=== PATIENT | male | born 1970 | race Caucasian/White ===

== ENCOUNTER → 2018-01-02 10:56 | Outpatient (CLI) | payer BC, SELFPAY ==
[2018-01-02 11:13] LABS: Adenovirus,PCR Not Detected (NotDetected); Bordetella Pertussis Not Detected (NotDetected); Chlamydophila Pneumoniae, PCR Not Detected (NotDetected); Coronavirus 229E Not Detected (NotDetected); Coronavirus NL63 Not Detected (NotDetected); Coronavirus OC43 Not Detected (NotDetected); Coronovirus HKU1,PCR Not Detected (NotDetected); Human Metapneumovirus Not Detected (NotDetected); Influenza A, PCR Not Detected (NotDetected); Influenza AH1, 2009 Not Detected (NotDetected); Influenza AH1, PCR Not Detected (NotDetected); Influenza AH3,PCR Not Detected (NotDetected); Influenza B, PCR Not Detected (NotDetected); Mycoplasma Pneumoniae, PCR Not Detected (NotDetected); Parainfluenza 1, PCR Not Detected (NotDetected); Parainfluenza 2, PCR Not Detected (NotDetected); Parainfluenza 3, PCR Not Detected (NotDetected); Parainfluenza 4, PCR Not Detected (NotDetected); Respiratory Syncytial Virus Not Detected (NotDetected); Rhinovirus/Enterovirus Not Detected (NotDetected)
[2018-01-02 13:29] LABS: Basophils # 0.1 K/mm3 (0-0.2); Basophils % 0.5 % (0.1-2.0); Eosinophils # 0.5 K/mm3 (0.0-0.4); Eosinophils % 4.1 % (0.1-12.0); Hemoglobin 13.7 g/dL (14.1-18.0); Lymphocytes # 2.1 K/mm3 (0.7-4.5); Lymphocytes % 17.5 % (10-50); Mean Corpuscular HGB Conc 32.5 g/dL (31.8-35.4); Mean Corpuscular Hemoglobin 31.5 pg (27.0-31.2); Mean Corpuscular Volume 96.8 fl (80-94); Mean Platelet Volume 6.8 fl (7.4-10.4); Monocytes # 0.5 K/mm3 (0.1-1.0); Monocytes % 4.2 % (1.7-9.3); Neutrophils % 73.7 % (37.0-80.0); Platelet Count 273 K/mm3 (142-424); Red Blood Count 4.34 M/mm3 (4.60-6.20); Red Cell Distribution Width 13.3 % (11.5-17.5); White Blood Count 12.2 K/mm3 (4.8-10.8)
[2018-01-02 14:23] LABS: Monoscreen (Rapid) Negative (Negative)
[2018-01-02 14:35] LABS: Alanine Aminotransferase 59 U/L (12-78); Albumin/Globulin Ratio 1.3 (1.1-1.8); Alkaline Phosphatase 84 U/L (46-116); Anion Gap 14.3 mEq/L (5-15); Aspartate Amino Transferase 31 U/L (15-37); Bilirubin,Total 0.3 mg/dL (0.2-1.0); Blood Urea Nitrogen 14 mg/dL (7-18); Calcium 9.1 mg/dL (8.5-10.1); Carbon Dioxide 29 mmol/L (21.0-32.0); Chloride 103 mmol/L (98-107); Creatinine,Serum 0.83 mg/dL (0.70-1.30); Estimated Glomerular Filt Rate 99 ml/min (>60); GFR (African American) 120 ML/MIN (>60); Glucose 95 mg/dL (74-106); Potassium 4.3 mmoL/L (3.5-5.1); Sodium 142 mmol/L (136-145)
== END ==
PROVIDERS: PCP Nurse Practitioner Family; Visit Provider Nurse Practitioner Family
DX: R05 Cough (principal); R52 Pain, unspecified
CPT/HCPCS: 36415; 80053; 85025; 86318; 87486; 87581; 87633; 87798

== ENCOUNTER → 2018-12-16 12:43 | Outpatient (CLI) | payer BC, SELFPAY ==
--- NOTE | 2018-12-16 12:45 | CT_ITS ---
PROCEDURE: CT CHEST WO CON CLINICAL INDICATION: COPD Posttraumatic pain, lower left rib/chest pain, smoker COMPARISON: XR CHEST 2V from 12/07/2018 TECHNIQUE: Axial images obtained with sagittal and coronal reformats. All CT scans at the facility use one or more dose reduction, viz: automated exposure control, ma/kV adjustment per patient size (including targeted exams where dose is matched to indication, i.e. head), or iterative reconstruction technique. FINDINGS: There are scattered small mediastinal lymph nodes. No dominant mediastinal or hilar adenopathy or mass is evident. There are coronary artery calcifications. No evidence of aortic aneurysm. Normal heart size without evidence pericardial effusion. Changes of COPD. There are diffuse faint ill-defined alveolar opacities in the upper lobes slightly more prominent on the right with slightly greater areas of faint consolidation noted in the right lower lobe laterally and in the right middle lobe laterally. There are few scattered small nodular opacities including a 4 mm nodule right upper lobe centrally image 32 series 3, 4 mm nodule right upper lobe centrally image 31 series 3, 6 mm nodule right upper lobe inferiorly along the major fissure image 45 series 3, 4 mm nodule right lower lobe posteriorly image 61 series 3. Ill-defined nodular opacities are present in the right lower lobe posterior laterally and could be due to nodular areas of infiltrate. Other scattered ground-glass opacities are noted as well including 1 in the right lower lobe posteriorly at 9 mm image 41 series 3. 3 mm noncalcified nodule lingula image 57 series 3. 3 mm noncalcified nodule left lower lobe posteriorly image 50 series 3. No effusions. Upper abdominal images show some calcification along the anterior aspect of the right kidney and the posterior aspect of the right hepatic lobe as well as a hyperdense nodule of the right kidney anteriorly at 5 mm and possible cyst in the upper pole of the right kidney. Ultrasound may provide further evaluation if clinically desired There are degenerative changes of the thoracic spine with mild wedging anteriorly involving T4 T12 and L1 which are age indeterminate. 3D reformatted images are performed of the ribs. There is a nondisplaced fracture involving the posterior lateral aspect of the left 10th rib. There are 13 sets of ribs. There is an old fracture involving the left 6th rib posteriorly. IMPRESSION: 1. Nondisplaced left 10th rib fracture 2. Scattered ground-glass opacities some of which have a somewhat nodular configuration. Inflammation or infection/pneumonia is considered. Cannot exclude the possibility metastatic disease therefore, follow-up is suggested. There are numerous noncalcified nodular opacities which are of the 6 mm or less. Suggest 3 month follow-up. 3. Coronary artery calcifications 4. COPD 5. 5 mm hyperdense nodule right kidney with possible cysts superiorly. Renal ultrasound may be of further value Dictated by: Cholo Camacho MD 12/18/2018 06:46 Electronically signed by Cholo Camacho MD in [facility] 12/18/2018 06:46
== END ==
PROVIDERS: PCP Nurse Practitioner Family; Visit Provider Nurse Practitioner Family
DX: J44.9 Chronic obstructive pulmonary disease, unspecified (principal)
CPT/HCPCS: 71250

== ENCOUNTER → 2019-03-27 14:52 | Outpatient (CLI) | payer BC, SELFPAY ==
--- NOTE | 2019-03-27 15:08 | CT_ITS ---
PROCEDURE: CT CHEST WO CON CLINICAL INDICATION: PULMONARY NODULE Follow-up pulmonary nodule, current smoker COMPARISON: CT CHEST WO CON from 12/16/2018 TECHNIQUE: Axial images obtained with sagittal and coronal reformats. All CT scans at the facility use one or more dose reduction, viz: automated exposure control, ma/kV adjustment per patient size (including targeted exams where dose is matched to indication, i.e. head), or iterative reconstruction technique. FINDINGS: No mediastinal or hilar mass or adenopathy. There are scattered small mediastinal lymph nodes which are not significantly changed. There are coronary artery calcifications. Normal heart size. Changes of COPD. Diffuse reticular pattern is present as before. There are scattered small pulmonary nodules as described on the previous exam which are not significantly changed. No new nodular opacities are evident. Small area of atelectasis is noted in the left upper lobe medially which was not present previously. There is mild diffuse bronchial thickening. The diffuse ill-defined alveolar opacities have improved. The consolidation in the right lower lobe and right middle lobe has improved. No effusions. The hyperdense right renal nodule is unchanged. There is some minimal calcification along the right renal cortex anteriorly. There is stable mild wedging T2 and T3 as well as T12-T11 and T10 IMPRESSION: 1. COPD with no change in the small bilateral pulmonary nodules. Suggest continued six-month follow-up. 2. There has been interval improvement in the patchy ground-glass attenuation/infiltrates Dictated by: Cholo Camacho MD 03/30/2019 07:05 Electronically signed by Cholo Camacho MD in [facility] 03/30/2019 07:05
== END ==
PROVIDERS: PCP Nurse Practitioner Family; Visit Provider Nurse Practitioner Family
DX: R91.1 Solitary pulmonary nodule (principal)
CPT/HCPCS: 71250

== ENCOUNTER → 2019-10-14 12:30 | Outpatient (CLI) | payer BC, SELFPAY ==
--- NOTE | 2019-10-14 12:41 | US_ITS ---
APPROVED REPORT Exam Type: Lower Extremity Segmental Pressures Materials Supervisor: Mayra Rojas RVT Indications Numbness/Tingling Current Smoker Pt c/o numbness lt foot/leg Risk Factors Hypertension Hyperlipidemia Current Smoker Pressures/Indices Right Indices Left Indices Brachial 124.00 mmHg Brachial 133.00 mmHg Low Thigh 121.00 mmHg 0.91 Low Thigh 148.00 mmHg 1.11 Calf 132.00 mmHg 0.99 Calf 159.00 mmHg 1.20 Ankle(PT) 113.00 mmHg 0.85 Ankle(PT) 155.00 mmHg 1.17 Ankle(DP) 146.00 mmHg 1.10 Ankle(DP) 145.00 mmHg 1.09 Digit 104.00 mmHg 0.78 Digit 119.00 mmHg 0.89 Findings RT BARTOLOME:1.10 LT BARTOLOME:1.17 RT TBI:0.78 LT TBI:0.89 NORMAL PULSES BILATERAL NORMAL WAVEFORMS BILATERAL Conclusion RT BARTOLOME:1.10 LT BARTOLOME:1.17 RT TBI:0.78 LT TBI:0.89 NORMAL PULSES BILATERAL NORMAL WAVEFORMS BILATERAL Electronically signed by : Cholo Camacho MD 10/14/2019 15:52:56
--- NOTE | 2019-10-14 12:41 | CA_ITS ---
APPROVED REPORT Left Lower Extremity Venous Study for DVT. Health Information Management Director: Mayra Rojas RVT Indications Lower Extremity Pain: Left Current Smoker NUMBNESS LT FOOT/LEG Risk Factors Current Smoker Vein Imaging CFV (L): compressive, spontaneous, phasic, augmentation FEM (L): compressive, spontaneous, phasic, augmentation POP (L): compressive, spontaneous, phasic, augmentation PTV (L): Compressible GSV (L): Compressible Peroneals (L):Compressible GAS (L): Compressible Findings Study suggests no evidence of DVT of the left lower extremity. Study suggests no evidence of SVT of the left lower extremity. Conclusion Study suggests no evidence of DVT of the left lower extremity. Study suggests no evidence of SVT of the left lower extremity. Electronically signed by : Cholo Camacho MD 10/14/2019 15:54:12
--- NOTE | 2019-10-14 13:17 | CT_ITS ---
PROCEDURE: CT CHEST WO CON CLINICAL INDICATION: PULMONARY NODULE PULMONARY NODULE F/U COMPARISON: CT CT CHEST WO CON from 03/27/2019 TECHNIQUE: Axial images obtained with sagittal and coronal reformats. All CT scans at the facility use one or more dose reduction, viz: automated exposure control, ma/kV adjustment per patient size (including targeted exams where dose is matched to indication, i.e. head), or iterative reconstruction technique. FINDINGS: HEART AND MEDIASTINAL STRUCTURES: Coronary artery calcifications are present. No mediastinal or hilar mass or adenopathy. Small hiatal hernia noted. LUNGS AND PLEURAL SPACES: COPD changes with evidence of old granulomatous disease. Scattered small pulmonary nodular opacities once again noted not significantly changed. Reticular pattern once again noted unchanged. No new nodules evident. There is BONY STRUCTURES: Chronic wedging of T2, T10, T11 and T12 unchanged. UPPER ABDOMEN: Unremarkable. ADDITIONAL FINDINGS: No other significant abnormalities. IMPRESSION: COPD with stable small pulmonary nodules. No change with no acute finding. Dictated by: Cholo Camacho MD 10/15/2019 07:43 Cholo Camacho MD in [facility] 10/15/2019 07:43
== END ==
PROVIDERS: PCP Nurse Practitioner Family; Visit Provider Nurse Practitioner Family
DX: M79.662 Pain in left lower leg (principal); R91.1 Solitary pulmonary nodule
CPT/HCPCS: 71250; 93923; 93971

== ENCOUNTER 2020-01-19 12:17 | Emergency (ER) | payer BC, SELFPAY ==
[2020-01-19 12:18] VITALS: BP 116/86; PULSE 97; RESP 20; TEMP 37.3; O2SAT 97; BMI 23.0
--- NOTE | 2020-01-19 12:22 | HMH.EDGENADL ---
ED Disposition Clinical Impression: Alcoholism, Hypokalemia Alcohol withdrawal Qualifiers: Complication of substance-induced condition: uncomplicated Qualified Code(s): F10.230 - Alcohol dependence with withdrawal, uncomplicated Disposition: Home, Self-Care Condition on Discharge: Fair Instructions: DI for Alcohol Abuse, DI for Drug or Alcohol Withdrawal Additional Instructions: Chlordiazepoxide as prescribed. Do not drink alcohol while taking this medication. Additional instructions for CONTROLLED SUBSTANCES: You have been prescribed a medication that is a controlled substance. Controlled substances include pain medications known as opiates and sedative nerve medications known as benzodiazepines. Tramadol, fioricet, and gabapentin are also controlled substances. Some common opiates include: Codeine (such as Tylenol #3) Hydrocodone (Vicodin, Lortab, Lorcet, [place]) Oxycodone (Percocet, Percodan, Oxycodone, Oxy IR) Some common benzodiazepines include: Diazepam (Valium) Lorazepam (Ativan) Alprazolam (Xanax) Clonazepam (Klonopin) Oxazepam (Serax) All of these controlled substances are highly addictive and frequently abused. Misuse can and frequently does lead to addiction as well as overdose and . Medication should be stored in a locked cabinet or other secure storage unit. Do not store the medication in a motor vehicle. Short term supplies, 3 days or less, are prescribed because of the highly addictive nature of the medication. Any of the controlled substance medication NOT taken should be disposed of properly and NOT SAVED. The recommended method of disposing of unused medications is: Place the medicines in a sealable plastic bag. If the medicine is a solid, crush it or add water to dissolve it. Add something undesirable (cat litter, coffee grounds, etc.) Dispose of sealed bag in household trash Do not flush or pour unused medicines down a sink or drain. Controlled substances should not be shared, given away or sold. Because of the addictive nature and frequent abuse, these medications are sometimes stolen. These medications should be kept in a safe place where they cannot be stolen. Do not keep them in your car or purse. Lost or stolen prescriptions for controlled substances WILL NOT BE REFILLED in this emergency department, regardless of whether a police report was filed. Prescriptions: chlordiazePOXIDE HCl [Librium 25mg Capsule] 50 mg PO DIRECTED #15 capsule Transmission Status: Sent to [facility] Referrals: Xiomy Ash [Primary Care Provider] - (Call tomorrow) - Critical Care Critical Care Time: No Attestation: On , the high probability of a clinically significant, sudden or life threatening deterioration of the following system(s) required my full and direct attention, intervention and personal management. The time I documented below is in addition to time spent performing reported procedures but includes the following listed in this critical care notation. Medical Decision Making - Dean Inquiry Pt receiving controlled substance: Yes Dean was queried for this patient: Yes Reference #:: [id number] Risks and benefits of using a controlled substance: were discussed with pt by me Comment: 1 rx for 4 chlordiazepoxide on 08/04/19 Vital Signs: 01/19/20 12:18 01/19/20 12:48 01/19/20 13:30 Temperature 99.1 F Temperature Source Oral Pulse Rate [Radial] 97 H 70 93 H Respiratory Rate 20 Blood Pressure [Right Arm] 116/86 114/74 113/79 Blood Pressure Mean [Right Arm] 96 87 90 Blood Pressure Source [Right Arm] Automatic Cuff Automatic Cuff Blood Pressure Position [Right Arm] Sitting Sitting Sitting 02 Sat by Pulse Oximetry 97 96 99 Oxygen Delivery Method Room Air Room Air Room Air 01/19/20 14:00 Temperature Temperature Source Pulse Rate [Radial] 67 Respiratory Rate Blood Pressure [Right Arm] 127/88 Blood Pressure Mean [Right Arm] 101 Blood Pressure Sour
[2020-01-19 12:48] VITALS: BP 114/74; PULSE 70; O2SAT 96
[2020-01-19 12:52] LABS: Basophils # 0.1 K/mm3 (0-0.2); Basophils % 0.8 % (0.1-2.0); Eosinophils # 0.1 K/mm3 (0.0-0.4); Eosinophils % 1.3 % (0.1-12.0); Hemoglobin 15.5 g/dL (14.1-18.0); Lymphocytes # 1.2 K/mm3 (0.7-4.5); Lymphocytes % 14.4 % (10-50); Mean Corpuscular HGB Conc 33.8 g/dL (31.8-35.4); Mean Corpuscular Hemoglobin 33.3 pg (27.0-31.2); Mean Corpuscular Volume 98.6 fl (80-94); Mean Platelet Volume 8.5 fl (7.4-10.4); Monocytes # 0.7 K/mm3 (0.1-1.0); Monocytes % 8.3 % (1.7-9.3); Neutrophils # 6.4 K/mm3 (1.8-7.8); Neutrophils % 75.3 % (37.0-80.0); Platelet Count 229 K/mm3 (142-424); Red Blood Count 4.66 M/mm3 (4.60-6.20); Red Cell Distribution Width 13.6 % (11.5-17.5); White Blood Count 8.5 K/mm3 (4.8-10.8)
[2020-01-19 12:58] LABS: Chloride 100 mmol/L (98-107); Sodium 138 mmol/L (136-145)
[2020-01-19 13:01] LABS: Alanine Aminotransferase 91 U/L (12-78); Albumin Level 4.7 g/dl (3.5-5.0); Albumin/Globulin Ratio 1.4 (1.1-1.8); Alkaline Phosphatase 116 U/L (38-126); Aspartate Amino Transferase 74 U/L (17-59); Bilirubin,Total 0.8 mg/dl (0.2-1.3); Blood Urea Nitrogen 13 mg/dl (9-20); Calcium 9.9 mg/dl (8.4-10.2); Carbon Dioxide 31 mmol/L (22.0-30.0); Creatinine Clearance Estimated 108 mL/min (50-200); Estimated Glomerular Filt Rate 90 ml/min (>60); GFR (African American) 109 ML/MIN (>60); Globulin 3.4 g/dL (1.3-3.2); Glucose 107 mg/dl (74-100); Total Protein,Serum 8.1 g/dl (6.3-8.2)
[2020-01-19 13:02] LABS: Magnesium 2.2 mg/dl (1.6-2.3)
[2020-01-19 13:03] LABS: Microscopic, Urine URINE MICROSCOPIC (MICROSCOPIC)
[2020-01-19 13:10] LABS: INR 0.98 (0.9-1.1); Prothrombin Time 10.9 seconds (9.4-11.8)
[2020-01-19 13:11] LABS: Ethyl Alcohol < 10 mg/dl (0-10)
[2020-01-19 13:17] LABS: Appearance,Urine CLEAR (Clear); Bilirubin,Urine Negative (Negative); Blood, Urine Negative (Negative); Color,Urine YELLOW (Yellow); Glucose,Urine (UA) Negative (Negative); Ketones,Urine Negative (Negative); Leukocyte Esterase,Urine Negative (Negative); Nitrate,Urine Negative (Negative); Protein,Urine Negative (Negative); Specific Gravity, Urine 1.015 (1.005-1.030); Urobilinogen,Urine 0.2 EU/dl (0.2)
[2020-01-19 13:29] LABS: Barbiturates Screen,Urine Negative ng/ml (<200)
[2020-01-19 13:30] VITALS: BP 113/79; PULSE 93; O2SAT 99
[2020-01-19 13:30] LABS: Amphetamine/Metha Screen,Urine Negative ng/ml (<1000); Benzodiazepines Screen,Urine Negative ng/ml (<200)
[2020-01-19 13:31] LABS: Cannabinoid Screen,Urine Negative ng/ml (<50); Methadone Screen,Urine Negative ng/ml (<300)
[2020-01-19 13:32] LABS: Cocaine Screen,Urine Negative ng/ml (<300)
[2020-01-19 13:33] LABS: Opiate Screen,Urine Negative ng/ml (<300); Phencyclidine Screen,Urine Negative ng/ml (<25)
[2020-01-19 14:00] VITALS: BP 127/88; PULSE 67; O2SAT 100
[2020-01-19 14:30] VITALS: BP 135/86; PULSE 78; O2SAT 100
[2020-01-19 14:42] VITALS: BP 135/86; PULSE 76; RESP 18; TEMP 36.7; O2SAT 99
== END 2020-01-19 14:44 | disposition home or self-care (01) ==
PROVIDERS: Emergency Provider Emergency Medicine; PCP Nurse Practitioner Family
DX: F10.230 Alcohol dependence with withdrawal, uncomplicated (principal); E87.6 Hypokalemia; F41.9 Anxiety disorder, unspecified; F17.210 Nicotine dependence, cigarettes, uncomplicated; Z79.899 Other long term (current) drug therapy; Z88.8 Allergy status to other drugs, medicaments and biological substances
CPT/HCPCS: 80053; 80305; 81001; 83735; 85025; 85610; 96365; 96375; 99283; J2405

== ENCOUNTER 2021-04-15 11:27 | Emergency (ER) | payer SELFPAY ==
[2021-04-15] VITALS (11 sets, daily range): BP systolic 126–141; BP diastolic 80–91; PULSE 58–71; RESP 15–18; TEMP 36.6–36.9; O2SAT 97–100; BMI 25.7
--- NOTE | 2021-04-15 11:49 | XR_ITS ---
PROCEDURE INFORMATION: Exam: XR Chest Exam date and time: 04/15/2021 11:49 AM Age: 50 years old Clinical indication: Pain; On breathing and right-sided; Additional info: Pain in RT lung TECHNIQUE: Imaging protocol: XR of the chest. Views: 2 views. COMPARISON: CT CHEST WO CON 12/16/2018 12:53 PM FINDINGS: Lungs: Hyperinflation consistent with COPD. No consolidation. Pleural spaces: Unremarkable. No pleural effusion. No pneumothorax. Heart/Mediastinum: Unremarkable. No cardiomegaly. Bones/joints: No acute findings. IMPRESSION: No acute findings.
--- NOTE | 2021-04-15 12:01 | HMH.EDGENADL ---
ED Disposition Clinical Impression: Costochondritis, acute Disposition: Home, Self-Care Condition on Discharge: Good Instructions: DI for Costochondritis Prescriptions: Ibuprofen [Ibuprofen 800mg Tablet] 800 mg PO TIDP PRN #20 tab PRN Reason: Moderate Pain Transmission Status: Pending to [facility] methocarbamoL [Methocarbamol 500mg Tablet] 1,000 mg PO TID 10 Days #60 tab Transmission Status: Pending to [facility] Referrals: Xiomy Ash [Primary Care Provider] - - Critical Care Critical Care Time: No Attestation: On 04/15/21, the high probability of a clinically significant, sudden or life threatening deterioration of the following system(s) required my full and direct attention, intervention and personal management. The time I documented below is in addition to time spent performing reported procedures but includes the following listed in this critical care notation. Medical Decision Making - Medical Records Medical records reviewed: Yes: I reviewed the patient's medical records. - Dean Inquiry Pt receiving controlled substance: No Vital Signs: 04/15/21 11:29 04/15/21 12:00 04/15/21 12:30 Temperature 97.9 F Temperature Source Oral Pulse Rate 67 64 Pulse Rate [Right Radial] 68 Respiratory Rate 18 16 16 Blood Pressure 128/84 136/87 Blood Pressure [Right Arm] 130/90 Blood Pressure Mean 104 103 Blood Pressure Mean [Right Arm] 103 Blood Pressure Source [Right Arm] Automatic Cuff Blood Pressure Position [Right Arm] Sitting 02 Sat by Pulse Oximetry 97 98 98 Oxygen Delivery Method Room Air 04/15/21 13:00 04/15/21 13:30 04/15/21 14:01 Temperature Temperature Source Pulse Rate 58 L 62 64 Pulse Rate [Right Radial] Respiratory Rate 18 16 15 Blood Pressure 126/80 139/87 136/84 Blood Pressure [Right Arm] Blood Pressure Mean 102 109 106 Blood Pressure Mean [Right Arm] Blood Pressure Source [Right Arm] Blood Pressure Position [Right Arm] 02 Sat by Pulse Oximetry 98 100 99 Oxygen Delivery Method - Lab Data Lab Results 04/15/21 13:40: WBC 11.0 H, RBC 4.14 L, Hgb 13.7 L, Hct 40.4 L, MCV 97.6 H, MCH 33.1 H, MCHC 33.9, RDW 12.5, Plt Count 245, MPV 6.7 L, Neut % (Auto) 71.9, Lymph % (Auto) 18.1, Barron % (Auto) 4.8, Eos % (Auto) 4.5, Baso % (Auto) 0.8, Neut # (Auto) 7.9 H, Lymph # (Auto) 2.0, Barron # (Auto) 0.5, Eos # (Auto) 0.5 H, Baso # (Auto) 0.1 04/15/21 13:40: Sodium 137, Potassium 4.5, Chloride 105, Carbon Dioxide 26, Anion Gap 10.5, BUN 18, Creatinine 0.80, Estimated Creat Clear 135, Estimated GFR 102, Est GFR ( Amer) 124, Glucose 93, Calcium 9.0, Total Bilirubin 0.5, AST 49, ALT 35, Alkaline Phosphatase 74, Troponin I < 0.01, Total Protein 7.8, Albumin 4.6, Globulin 3.2, Albumin/Globulin Ratio 1.4 Result diagrams: 04/15/21 13:40 04/15/21 13:40 Orders (Tests/Meds): ED MEDICATIONS Discontinued Medications Generic Name Dose Route Start Last Admin Trade Name Freq PRN Reason Stop Dose Admin Ketorolac Tromethamine 30 mg 04/15/21 11:56 04/15/21 13:40 Ketorolac 30mg/Ml Vial IV 04/15/21 11:57 30 mg ONCE ONE Administration Methocarbamol 1,000 mg 04/15/21 11:56 04/15/21 13:40 Methocarbamol 500mg Tablet PO 04/15/21 11:57 1,000 mg ONCE STA Administration ORDERS Category Date Time Status Troponin I Q3H Lab 04/15/21 15:00 Ordered Troponin I Q3H Lab 04/15/21 18:00 Ordered - Radiology Data #1 Image(s): Chest Image Reviewed: Yes I reviewed the patient's radiology results, Yes I reviewed the patient's radiology image, Yes I have reviewed radiologist's interpretation Preliminary Findings: Normal/NAD - Reevaluation(s) Time: 14:41 Reevaluation #1: On reevaluation, patient is feeling much better. Pain is improved. Troponin is negative. Chest x-ray unremarkable. Patient's findings are consistent with rib strain versus costochondritis. Patient be placed on a short course of anti
--- NOTE | 2021-04-15 12:14 | PC.NURSE ---
pt to radiology
[2021-04-15 13:54] LABS: Basophils # 0.1 K/mm3 (0-0.2); Basophils % 0.8 % (0.1-2.0); Eosinophils # 0.5 K/mm3 (0.0-0.4); Eosinophils % 4.5 % (0.1-12.0); Hematocrit 40.4 % (42.0-52.0); Hemoglobin 13.7 g/dL (14.1-18.0); Lymphocytes % 18.1 % (10-50); Mean Corpuscular HGB Conc 33.9 g/dL (31.8-35.4); Mean Corpuscular Hemoglobin 33.1 pg (27.0-31.2); Mean Corpuscular Volume 97.6 fl (80-94); Mean Platelet Volume 6.7 fl (7.4-10.4); Monocytes # 0.5 K/mm3 (0.1-1.0); Monocytes % 4.8 % (1.7-9.3); Neutrophils # 7.9 K/mm3 (1.8-7.8); Neutrophils % 71.9 % (37.0-80.0); Platelet Count 245 K/mm3 (142-424); Red Blood Count 4.14 M/mm3 (4.60-6.20); Red Cell Distribution Width 12.5 % (11.5-17.5)
[2021-04-15 14:10] LABS: Chloride 105 mmol/L (98-107); Potassium 4.5 mmoL/L (3.5-5.1); Sodium 137 mmol/L (136-145)
[2021-04-15 14:12] LABS: Alanine Aminotransferase 35 U/L (12-78); Alkaline Phosphatase 74 U/L (38-126); Aspartate Amino Transferase 49 U/L (17-59); Bilirubin,Total 0.5 mg/dl (0.2-1.3)
[2021-04-15 14:13] LABS: Albumin Level 4.6 g/dl (3.5-5.0); Albumin/Globulin Ratio 1.4 (1.1-1.8); Anion Gap 10.5 mEq/L (5-15); Carbon Dioxide 26 mmol/L (22.0-30.0); Globulin 3.2 g/dL (1.3-3.2); Glucose 93 mg/dl (74-100); Total Protein,Serum 7.8 g/dl (6.3-8.2)
[2021-04-15 14:18] LABS: Blood Urea Nitrogen 18 mg/dl (9-20); Creatinine Clearance Estimated 135 mL/min (50-200); Estimated Glomerular Filt Rate 102 ml/min (>60); GFR (African American) 124 ML/MIN (>60)
[2021-04-15 14:25] LABS: Troponin I < 0.01 ng/ml (0.00-0.034)
[2021-04-15 15:52] LABS: Troponin I < 0.01 ng/ml (0.00-0.034)
== END 2021-04-15 16:20 | disposition home or self-care (01) ==
PROVIDERS: Emergency Provider Emergency Medicine; PCP Nurse Practitioner Family
DX: M94.0 Chondrocostal junction syndrome [Tietze] (principal)
CPT/HCPCS: 71046; 80053; 84484; 85025; 96374; 99282; 99283

== ENCOUNTER 2021-09-20 15:48 | Emergency (ER) | payer MEDICAID, SELFPAY ==
[2021-09-20] VITALS (7 sets, daily range): BP systolic 121–140; BP diastolic 63–81; PULSE 61–78; RESP 18; TEMP 36.6; O2SAT 97–99; BMI 25.7
--- NOTE | 2021-09-20 15:58 | PC.NURSE ---
urine obtained on pt upon arrival
--- NOTE | 2021-09-20 16:16 | HMH.EDGENADL ---
ED Disposition Clinical Impression: Back pain Qualifiers: Back pain location: low back pain Chronicity: acute Back pain laterality: left Sciatica presence: without sciatica Qualified Code(s): M54.50 - Low back pain, unspecified Disposition: Home, Self-Care Condition on Discharge: Good Prescriptions: methocarbamoL [Methocarbamol] 750 mg PO Q6 PRN #30 tab PRN Reason: Muscle Spasm Transmission Status: Received by [facility] Referrals: Xiomy Ash [Primary Care Provider] - Forms: Work/School Release - Critical Care Critical Care Time: No Attestation: On 09/20/21, the high probability of a clinically significant, sudden or life threatening deterioration of the following system(s) required my full and direct attention, intervention and personal management. The time I documented below is in addition to time spent performing reported procedures but includes the following listed in this critical care notation. Medical Decision Making - Dean Inquiry Pt receiving controlled substance: Yes Dean was queried for this patient: No Risks and benefits of using a controlled substance: were discussed with pt by me Vital Signs: 09/20/21 15:50 09/20/21 15:55 09/20/21 16:00 Temperature 98 F Temperature Source Oral Pulse Rate 78 77 Pulse Rate [Left Radial] 73 Respiratory Rate 18 Blood Pressure 140/74 129/80 Blood Pressure [Right Arm] 129/80 Blood Pressure Mean 91 90 Blood Pressure Mean [Right Arm] 96 Blood Pressure Source [Right Arm] Automatic Cuff Blood Pressure Position [Right Arm] Sitting 02 Sat by Pulse Oximetry 98 99 99 Oxygen Delivery Method Room Air 09/20/21 16:45 09/20/21 17:00 09/20/21 17:30 Temperature Temperature Source Pulse Rate 66 64 61 Pulse Rate [Left Radial] Respiratory Rate 18 18 Blood Pressure 121/63 127/74 130/81 Blood Pressure [Right Arm] Blood Pressure Mean 95 96 94 Blood Pressure Mean [Right Arm] Blood Pressure Source [Right Arm] Blood Pressure Position [Right Arm] 02 Sat by Pulse Oximetry 97 97 97 Oxygen Delivery Method Room Air 09/20/21 17:38 Temperature 98 F Temperature Source Pulse Rate 61 Pulse Rate [Left Radial] Respiratory Rate 18 Blood Pressure 130/81 Blood Pressure [Right Arm] Blood Pressure Mean Blood Pressure Mean [Right Arm] Blood Pressure Source [Right Arm] Blood Pressure Position [Right Arm] 02 Sat by Pulse Oximetry Oxygen Delivery Method Room Air - Lab Data Lab Results 09/20/21 16:00: Urine Color Yellow, Urine Appearance Clear, Urine pH 6.5, Ur Specific [place] 1.025, Urine Protein Negative, Urine Glucose (UA) Negative, Urine Ketones Negative, Urine Blood Negative, Urine Nitrate Negative, Urine Bilirubin Negative, Urine Urobilinogen 0.2, Ur Leukocyte Esterase Negative, Urine RBC None, Urine WBC None, Ur Squamous Epith Cells 3-5, Urine Bacteria None 09/20/21 16:30: Sodium 141, Potassium 4.0, Chloride 110 H, Carbon Dioxide 25, Anion Gap 10.0, BUN 21 H, Creatinine 0.90, Estimated Creat Clear 120, Estimated GFR 89, Est GFR ( Amer) 108, Glucose 109 H, Calcium 9.3 Result diagrams: 09/20/21 16:30 Orders (Tests/Meds): ED MEDICATIONS Discontinued Medications Generic Name Dose Route Start Last Admin Trade Name Keithq PRN Reason Stop Dose Admin Diazepam 5 mg 09/20/21 16:20 09/20/21 16:36 Diazepam 5mg Tablet PO 09/20/21 16:21 5 mg ONCE ONE Administration Ketorolac Tromethamine 15 mg 09/20/21 16:21 09/20/21 16:27 Ketorolac 30mg/Ml Vial IM 09/20/21 16:22 Not Given ONCE ONE Ketorolac Tromethamine 15 mg 09/20/21 16:21 09/20/21 16:36 Ketorolac 30mg/Ml Vial IV 09/20/21 16:22 15 mg ONCE ONE Administration Medical Decision Narrative: In review this is a 50-year-old male who presents with left flank pain. Hemodynamically stable and nontoxic-appearing. Patient's physical exam does have left-sided CVA tenderness as well as some paraspinal tenderness so this could
[2021-09-20 16:17] LABS: Microscopic, Urine URINE MICROSCOPIC (MICROSCOPIC)
--- NOTE | 2021-09-20 16:21 | CT_ITS ---
FINAL REPORT CLINICAL HISTORY: Lt flank pain x days COMPARISON: October 14, 2019 FINDINGS: Axial CT images of the abdomen and pelvis were obtained without intravenous contrast. Coronal reformatted images were also obtained.This study was performed with techniques to keep radiation doses as low as reasonably achievable (ALARA). Individualized dose reduction techniques using automated exposure control or adjustment of mA and/or kV according to the patient's size were employed. Abdomen: There are stable small nodules in the right lower lobe. There is a calcified granuloma in the left lower lobe. There is no evidence of renal stone or hydronephrosis. There is presumed postoperative change along the lateral right kidney. There is a small stone in the gallbladder with mild gallbladder wall thickening. The liver, spleen and pancreas have an unremarkable, unenhanced appearance. There are small masses in both kidneys that cannot be accurately characterized but were on the prior exam. No inflammatory process is identified. There are multiple colonic diverticulum. Pelvis: Images of the pelvis reveal no evidence of ureteral dilation or ureteral stone.No mass or abnormal fluid collection is identified. The appendix is normal. There is a small right inguinal hernia containing fat. Mild bladder wall thickening is likely inflammatory. IMPRESSION: Small stone in the gallbladder with mild gallbladder wall thickening. If indicated, nuclear medicine hepatobiliary scan could further evaluate. Small bilateral renal masses cannot be accurately characterized but were present on the prior exam. Diverticulosis without evidence of diverticulitis. Mild urinary bladder wall thickening is likely inflammatory. Reviewed, Interpreted and Dictated by Osman Maldonado III, MD Transcribed by Matthias Kang Authenticated and . [facility]
[2021-09-20 16:23] LABS: Appearance,Urine CLEAR (Clear); Bilirubin,Urine Negative (Negative); Blood, Urine Negative (Negative); Color,Urine YELLOW (Yellow); Glucose,Urine (UA) Negative (Negative); Ketones,Urine Negative (Negative); Leukocyte Esterase,Urine Negative (Negative); Nitrate,Urine Negative (Negative); PH,Urine 6.5 (5.0-8.5); Protein,Urine Negative (Negative); Specific Gravity, Urine 1.025 (1.005-1.030); Urobilinogen,Urine 0.2 EU/dl (0.2)
--- NOTE | 2021-09-20 16:27 | PC.NURSE ---
pt to radiology
--- NOTE | 2021-09-20 16:27 | PC.NURSE ---
pt back from radiology
[2021-09-20 16:47] LABS: Chloride 110 mmol/L (98-107); Sodium 141 mmol/L (136-145)
[2021-09-20 16:50] LABS: Blood Urea Nitrogen 21 mg/dl (9-20); Creatinine Clearance Estimated 120 mL/min (50-200); Estimated Glomerular Filt Rate 89 ml/min (>60); GFR (African American) 108 ML/MIN (>60)
[2021-09-20 16:51] LABS: Calcium 9.3 mg/dl (8.4-10.2); Carbon Dioxide 25 mmol/L (22.0-30.0); Glucose 109 mg/dl (74-100)
--- NOTE | 2021-09-20 16:57 | PC.NURSE ---
rounded on pt at this time, pt resting in bed, visitor at BS. Updated pt we are waiting on Ct scan results. Pt states no needs at this time. Offered blanket-pt declined. will continue to monitor
== END 2021-09-20 17:40 | disposition home or self-care (01) ==
PROVIDERS: Emergency Provider Student in an Organized Health Care Education/Training Program; PCP Nurse Practitioner Family
DX: M54.42 Lumbago with sciatica, left side (principal); N20.0 Calculus of kidney
CPT/HCPCS: 74176; 80048; 81001; 96374; 99284

== ENCOUNTER 2022-01-29 17:52 | Emergency (ER) | payer MEDICAID, SELFPAY ==
[2022-01-29 17:53] VITALS: BP 136/83; PULSE 65; RESP 18; TEMP 36.6; O2SAT 98; BMI 27.1
--- NOTE | 2022-01-29 18:07 | PC.NURSE ---
DR. NICHOLS AT BEDSIDE
--- NOTE | 2022-01-29 18:17 | HMH.EDGENADL ---
Discharge Plan Disposition Patient Disposition: Home, Self-Care Condition: Fair Prescriptions Prescriptions: New methocarbamol [Methocarbamol] 750 mg tablet 750 mg PO Q6 PRN (Reason: Muscle Spasm) Qty: 30 0RF No Action methocarbamol 500 MG tablet 1,000 mg PO TID 10 Days Qty: 60 0RF ibuprofen 800 MG tablet 800 mg PO TIDP PRN (Reason: Moderate Pain) Qty: 20 0RF methocarbamol 750 MG tablet 750 mg PO Q6 PRN (Reason: Muscle Spasm) Qty: 30 0RF hydrochlorothiazide 12.5 MG tablet 25 mg PO DAILY aspirin 81 MG tablet,chewable 81 mg PO DAILY albuterol sulfate 2.5 MG/NEB solution for nebulization 2.5 mg IH DAILY trazodone 150 MG tablet 150 mg PO PM methocarbamol 500 MG tablet 500 mg PO BID PRN (Reason: Muscle Spasm) Qty: 10 0RF atorvastatin 10 MG tablet 10 mg PO HS amlodipine 5 MG tablet 5 mg PO DAILY hydrochlorothiazide 12.5 MG capsule 25 mg PO ONCE omeprazole 20 MG tablet,delayed release (DR/EC) 20 mg PO DAILY chlordiazepoxide HCl 25 MG capsule 50 mg PO DIRECTED Qty: 15 0RF Rx Instructions: 50 mg Q6h day 1, 25 mg Q6h day 2, 25 mg Q6h day 3, 25 mg HS day 4 Referrals Follow up/Referrals: Aleksandar Quintana DO [Staff Physician] - See instructions (concern for proximal biceps tendon tear) Xiomy Ash [Primary Care Provider] - See instructions Activity Restrictions/Add. Instructions Additional Instructions/Restrictions: Please follow-up with the orthopedics team for concern about a proximal biceps tendon injury. Please return with any new or worsening symptoms. Clinical Impressions Clinical Impression: Traumatic injury of right biceps brachii muscle Discharge ED Provider: Saeed Del Rio General Adult HPI General Chief complaint: Skin/Abscess/Foreign Body Stated complaint: right arm bruising/swelling, no accident Time Seen by Provider: 01/29/22 18:10 Mode of Arrival: Ambulatory Limitations: No Limitations Description of Symptoms (Recalled from ER Triage Doc. by RN): PT WITH BRUISING TO RIGHT UPPER ARM X 1 WEEK, NO KNOWN ACCIDENT. REPORTS TINGLING TO RIGHT SIDE OF SCALP, WORSE IN AM FOR ABOUT 3 DAYS History of Present Illness HPI narrative: Patient is a 51-year-old male with a past medical history of back pain who presents with concern for right arm injury. He says approximately 1 week ago he was using a flies water to get a cat and hurt his right arm. He was then turned to start a lawnmower and felt a pain in his right bicep after trying to do this. He says that over the next couple days he noticed a substantial amount of bruising over his right bicep. He denies any numbness or tingling into the extremity. He has been marking the bruise with a pen and he says its been spreading. Denies any difficulties using the extremity just says that it is more painful than normal. Related Data Home Medications Medication Instructions Recorded Confirmed albuterol sulfate 2.5 mg/3 mL 2.5 mg IH DAILY Breathing problems 12/07/18 01/19/20 (0.083 %) solution for nebulization aspirin 81 mg chewable tablet 81 mg PO DAILY Blood thinner 12/07/18 01/19/20 hydrochlorothiazide 12.5 mg tablet 25 mg PO DAILY Hypertension 12/07/18 01/19/20 trazodone 150 mg tablet 150 mg PO PM Sleep 12/07/18 01/19/20 amlodipine 5 mg tablet 5 mg PO DAILY High blood pressure 01/19/20 01/19/20 atorvastatin 10 mg tablet 10 mg PO HS Cholesterol 01/19/20 01/19/20 hydrochlorothiazide 12.5 mg capsule 25 mg PO ONCE High blood pressure 01/19/20 01/19/20 omeprazole 20 mg tablet,delayed 20 mg PO DAILY GERD 01/19/20 01/19/20 release Previous Rx's Medication Instructions Recorded methocarbamol 500 mg tablet 500 mg PO BID PRN Muscle Spasm #10 12/07/18 tabs chlordiazepoxide HCl 25 mg capsule 50 mg PO DIRECTED #15 caps 01/19/20 ibuprofen 800 mg tablet 800 mg PO TIDP PRN Moderate Pain 04/15/21 #20 tabs methocarbamol 500 mg tablet 1,000 mg PO TID 10 days #60 tabs 0
[2022-01-29 18:22] VITALS: BP 118/86; PULSE 63; RESP 18; TEMP 36.7; O2SAT 97
== END 2022-01-29 18:24 | disposition home or self-care (01) ==
PROVIDERS: Emergency Provider Student in an Organized Health Care Education/Training Program; PCP Nurse Practitioner Family
DX: S46.201A Unspecified injury of muscle, fascia and tendon of other parts of biceps, right arm, initial encounter (principal)
CPT/HCPCS: 99283

== ENCOUNTER → 2022-03-21 13:27 | Outpatient (CLI) | payer MEDICAID, SELFPAY ==
--- NOTE | 2022-03-21 13:30 | XR_ITS ---
FINAL REPORT CLINICAL HISTORY: bicept pain FINDINGS: RIGHT HUMERUS 2 views were obtained. There is no acute fracture or dislocation. There is mild degenerative change of the acromioclavicular joint. There is no soft tissue abnormality. IMPRESSION: Mild degenerative change of the acromioclavicular joint without acute bony abnormality. Reviewed, Interpreted and Dictated by Osman Maldonado III, MD Transcribed by Isha Malone Authenticated and [facility]
== END ==
PROVIDERS: PCP Nurse Practitioner Family; Visit Provider Orthopaedic Surgery
DX: S46.111A Strain of muscle, fascia and tendon of long head of biceps, right arm, initial encounter (principal)
CPT/HCPCS: 73060

== ENCOUNTER → 2022-03-29 15:31 | Outpatient (CLI) | payer MEDICAID, SELFPAY ==
--- NOTE | 2022-03-29 15:31 | MR_ITS ---
PROCEDURE INFORMATION: Exam: MR Right Upper Extremity Joint Without Contrast; Shoulder Exam date and time: 03/29/2022 4:08 PM Age: 51 years old Clinical indication: Pain; Shoulder; Right; Additional info: Shoulder pain. [place] a pop [id number] ago. TECHNIQUE: Imaging protocol: Magnetic resonance imaging of the Right upper extremity without contrast. Exam focused on the shoulder. COMPARISON: CR XR HUMERUS RT 03/21/2022 1:32 PM FINDINGS: Bones and cartilage: A small depression is identified of the humeral head posteriorly, likely representing post-traumatic change or Hill-Sachs impaction injury. Adjacent osseous cystic/edematous change is visualized. Minimal marrow edema involving the humeral head anteriorly. Acromioclavicular arthropathy is identified, with effacement of the underlying tissue planes. Normal alignment of the glenohumeral joint. Joint spaces: At the acromioclavicular joint, edema is seen within the bone marrow of the adjacent clavicle, secondary to arthropathy. A small effusion is noted within this joint. Small glenohumeral joint effusion. Glenoid labrum: Increased signal intensity is noted within the superior and posterosuperior aspects of the labrum, with suggested labral tears. Blunting of the posterior aspect of the labrum. Bursae: Small amount of fluid within the subdeltoid/subacromial bursa. Supraspinatus tendon: Tendinosis of the supraspinatus tendon, with partial tear of the posterior fibers. Infraspinatus tendon: High-grade partial or full-thickness tear of the distal infraspinatus tendon. Bands of fluid signal intensity or partial tears are identified the musculotendinous junction. Tendinosis also noted of this tendon. Subscapularis tendon: Heterogeneous signal intensity of the subscapularis tendon, consistent with tendinosis. Partial tear cannot be excluded. Teres minor tendon: No evidence of tear. Tendon of biceps brachii: The long of the biceps tendon is poorly visualized, concerning for tear. Glenohumeral ligaments: No evidence of tear of the inferior glenohumeral ligament. Muscles: See Infraspinatus tendon finding. Soft tissues: No significant soft tissue swelling. Lymph nodes: Nonspecific mildly enlarged axillary lymph nodes. IMPRESSION: 1. A small depression is identified of the humeral head posteriorly, likely representing post-traumatic change or Hill-Sachs impaction injury. Adjacent osseous cystic/edematous change is visualized. Minimal marrow edema involving the humeral head anteriorly. 2. High-grade partial or full-thickness tear of the distal infraspinatus tendon. Bands of fluid signal intensity or partial tears are identified the musculotendinous junction. Tendinosis also noted of this tendon. 3. Tendinosis of the supraspinatus tendon, with partial tear of the posterior fibers. 4. The long of the biceps tendon is poorly visualized, concerning for tear. 5. Small amount of fluid within the subdeltoid/subacromial bursa. 6. Subscapularis tendinosis. Partial tear cannot be excluded. 7. Acromioclavicular arthropathy is identified, with effacement of the underlying tissue planes. 8. Suggested labral tears. 9. Small glenohumeral joint effusion. 10. Additional findings described above.
== END ==
PROVIDERS: PCP Nurse Practitioner Family; Visit Provider Orthopaedic Surgery
DX: S46.111A Strain of muscle, fascia and tendon of long head of biceps, right arm, initial encounter (principal); M25.511 Pain in right shoulder
CPT/HCPCS: 73221

== ENCOUNTER → 2022-05-11 14:18 | Outpatient (CLI) | payer MEDICAID, SELFPAY ==
--- NOTE | 2022-05-11 14:23 | CT_ITS ---
FINAL REPORT TECHNIQUE: Axial images were obtained from the lung apex to the mid abdomen by computed tomography. This study was performed with techniques to keep radiation doses as low as reasonably achievable (ALARA). Individualized dose reduction techniques using automated exposure control or adjustment of mA and/or kV according to the patient's size were employed. CLINICAL HISTORY: CURRENT SMOKER LUNG SCREENING smokes 1 pk per day x 35 yrs. copd COMPARISON: 10/14/2019 FINDINGS: CHEST CT LOW DOSE CTDI vol (mGy): 2.90 DLP (mGy-cm): 114.90 There are a few small scattered mediastinal lymph nodes. There is dense coronary artery calcification. There is a small sliding-type hiatal hernia. The heart is normal in size. There is no pericardial or pleural effusion. There are multifocal airspace opacities in the right upper lobe and right lower lobe. The left lung is clear. There are gallstones in a contracted gallbladder. IMPRESSION: Dense patchy airspace infiltrates as detailed above. Lung RADS category 0. Recommend follow-up in 1 month. Reviewed, Interpreted and Dictated by Emerson Hodge MD Transcribed by Xin Beauchamp Authenticated and [facility]
== END ==
PROVIDERS: PCP Nurse Practitioner Family; Visit Provider Nurse Practitioner Family
DX: Z87.891 Personal history of nicotine dependence (principal); Z12.2 Encounter for screening for malignant neoplasm of respiratory organs
CPT/HCPCS: 71271

== ENCOUNTER 2022-07-22 16:04 | Emergency (ER) | payer MEDICAID, SELFPAY ==
[2022-07-22 16:06] VITALS: BP 134/81; PULSE 80; RESP 18; TEMP 37.3; O2SAT 96; BMI 27.8
[2022-07-22 16:10] VITALS: BP 134/81; PULSE 81; RESP 18; O2SAT 100
[2022-07-22 16:18] VITALS: BMI 27.8
--- NOTE | 2022-07-22 16:18 | XR_ITS ---
PROCEDURE INFORMATION: Exam: XR Chest Exam date and time: 07/22/2022 4:29 PM Age: 51 years old Clinical indication: Shortness of breath; Additional info: SOA TECHNIQUE: Imaging protocol: Radiologic exam of the chest. Views: 1 view. COMPARISON: CT LUNG SCREENING 05/11/2022 2:26 PM FINDINGS: Lungs: No evidence of pneumonia or interstitial edema. Pleural spaces: Unremarkable. No pleural effusion. No pneumothorax. Heart/Mediastinum: Unremarkable. No cardiomegaly. Bones/joints: Unremarkable. IMPRESSION: No evidence of pneumonia or interstitial edema.
--- NOTE | 2022-07-22 16:18 | ECG_ITS ---
APPROVED REPORT Exam: Resting ECG HR:81 bpm ECG Measurements Heart Rate 81 AXES NH 136 P 59 QRSd 82 QRS 59 QT 331 T 66 QTc 369 Conclusion SINUS RHYTHM NORMAL ECG UNCONFIRMED REPORT Electronically signed by : Segundo Lester MD 07/23/2022 21:26:57
--- NOTE | 2022-07-22 16:18 | PC.NURSE ---
DR MARY AT BEDSIDE
--- NOTE | 2022-07-22 16:20 | HMH.EDGENADL ---
Discharge Plan Disposition Patient Disposition: Home, Self-Care Condition: Fair Prescriptions Prescriptions: New prednisone 20 mg tablet 40 mg PO DAILY 5 Days Qty: 10 0RF doxycycline hyclate 100 mg tablet 100 mg PO BID 7 Days Qty: 14 0RF No Action methocarbamol 500 MG tablet 1,000 mg PO TID 10 Days Qty: 60 0RF ibuprofen 800 MG tablet 800 mg PO TIDP PRN (Reason: Moderate Pain) Qty: 20 0RF methocarbamol 750 MG tablet 750 mg PO Q6 PRN (Reason: Muscle Spasm) Qty: 30 0RF hydrochlorothiazide 12.5 MG tablet 25 mg PO DAILY aspirin 81 MG tablet,chewable 81 mg PO DAILY albuterol sulfate 2.5 MG/NEB solution for nebulization 2.5 mg inhalation DAILY trazodone 150 MG tablet 150 mg PO PM methocarbamol 500 MG tablet 500 mg PO BID PRN (Reason: Muscle Spasm) Qty: 10 0RF atorvastatin 10 MG tablet 10 mg PO HS amlodipine 5 MG tablet 5 mg PO DAILY hydrochlorothiazide 12.5 MG capsule 25 mg PO ONCE omeprazole 20 MG tablet,delayed release (DR/EC) 20 mg PO DAILY chlordiazepoxide HCl 25 MG capsule 50 mg PO DIRECTED Qty: 15 0RF Rx Instructions: 50 mg Q6h day 1, 25 mg Q6h day 2, 25 mg Q6h day 3, 25 mg HS day 4 methocarbamol [Methocarbamol] 750 mg tablet 750 mg PO Q6 PRN (Reason: Muscle Spasm) Qty: 30 0RF Referrals Follow up/Referrals: Xiomy Ash [Primary Care Provider] - See instructions Activity Restrictions/Add. Instructions Additional Instructions/Restrictions: You have been evaluated for cough and shortness of breath. Overall presentation is concerning for atypical pneumonia, COPD exacerbation. Please continue using your inhalers as prescribed. Take steroids and antibiotics, doxycycline. Follow-up with your primary care doctor. Return to the emergency department at once for any new or worsening symptoms, difficulty breathing or other concerns. Clinical Impressions Clinical Impression: Atypical pneumonia, Asthma exacerbation in COPD Instructions Patient Instructions: DI for Atypical Pneumonia Discharge ED Provider: Tash Zepeda Adult HPI General Chief complaint: Shortness of Breath/Dyspnea Stated complaint: SOA, MEJIA, sore throat, body aches Time Seen by Provider: 07/22/22 16:15 Mode of Arrival: Ambulatory Source of Information: Patient Limitations: No Limitations Description of Symptoms (Recalled from ER Triage Doc. by RN): PT WITH C/O INCREASED SHORTNESS OF BREATH SINCE SATURDAY. WORSE WITH EXERTION. REPORTS COUGH AND BODYACHES History of Present Illness HPI narrative: 51-year-old male presenting to the emergency department with cough, body aches, shortness of breath. Symptoms started a couple of days ago on Saturday. He woke up, felt generally unwell, fatigue, generalized malaise. He has a cough that is wet, nonproductive. Feels short of breath. Has a dull headache that is located on both sides. No neck pain. No fevers, chills, rashes on his skin no particular chest pain. He suffers from COPD. Had pneumonia 1 month ago. Has been using his albuterol inhalers. No known sick contacts. Related Data Home Medications Medication Instructions Recorded Confirmed albuterol sulfate 2.5 mg/3 mL 2.5 mg inhalation DAILY Breathing 12/07/18 04/06/22 (0.083 %) solution for nebulization problems aspirin 81 mg chewable tablet 81 mg PO DAILY Blood thinner 12/07/18 04/06/22 hydrochlorothiazide 12.5 mg tablet 25 mg PO DAILY Hypertension 12/07/18 04/06/22 trazodone 150 mg tablet 150 mg PO PM Sleep 12/07/18 04/06/22 amlodipine 5 mg tablet 5 mg PO DAILY High blood pressure 01/19/20 04/06/22 atorvastatin 10 mg tablet 10 mg PO HS Cholesterol 01/19/20 04/06/22 hydrochlorothiazide 12.5 mg capsule 25 mg PO ONCE High blood pressure 01/19/20 04/06/22 omeprazole 20 mg tablet,delayed 20 mg PO DAILY GERD 01/19/20 04/06/22 release Previous Rx's Medication Instructions Recorded methocarbamol 500 mg tablet 500 mg PO BID PRN Mus
[2022-07-22 16:25] LABS: Coronavirus 19, PCR Not Detected (NotDetected); Influenza A, PCR Not Detected (NotDetected); Influenza B, PCR Not Detected (NotDetected)
[2022-07-22 16:27] LABS: Basophils # 0.1 K/mm3 (0-0.2); Basophils % 1.1 % (0.1-2.0); Chloride 101 mmol/L (98-107); Eosinophils # 0.3 K/mm3 (0.0-0.4); Eosinophils % 3.3 % (0.1-12.0); Hematocrit 43.3 % (42.0-52.0); Hemoglobin 14.2 g/dL (14.1-18.0); Lymphocytes # 1.3 K/mm3 (0.7-4.5); Lymphocytes % 16.3 % (10-50); Mean Corpuscular HGB Conc 32.7 g/dL (31.8-35.4); Mean Corpuscular Volume 94.7 fl (80-94); Mean Platelet Volume 7.2 fl (7.4-10.4); Monocytes # 0.6 K/mm3 (0.1-1.0); Monocytes % 7.4 % (1.7-9.3); Neutrophils # 5.6 K/mm3 (1.8-7.8); Neutrophils % 71.9 % (37.0-80.0); Platelet Count 238 K/mm3 (142-424); Potassium 3.9 mmoL/L (3.5-5.1); Red Blood Count 4.58 M/mm3 (4.60-6.20); Red Cell Distribution Width 13.5 % (11.5-17.5); Sodium 139 mmol/L (136-145); White Blood Count 7.8 K/mm3 (4.8-10.8)
[2022-07-22 16:30] VITALS: BP 132/81; PULSE 76; RESP 18; O2SAT 100
[2022-07-22 16:30] LABS: Anion Gap 12.9 mEq/L (5-15); Blood Urea Nitrogen 15 mg/dl (9-20); Carbon Dioxide 29 mmol/L (22.0-30.0); Creatinine Clearance Estimated 128 mL/min (50-200); Estimated Glomerular Filt Rate 89 ml/min (>60); GFR (African American) 108 ML/MIN (>60)
[2022-07-22 16:31] LABS: Calcium 8.8 mg/dl (8.4-10.2); Glucose 112 mg/dl (74-100); Lactic Acid 1.3 mmol/L (0.7-2.1)
[2022-07-22 16:45] LABS: Troponin I < 0.01 ng/ml (0.00-0.034)
[2022-07-22 17:00] VITALS: BP 146/84; PULSE 76; RESP 18; O2SAT 96
[2022-07-22 17:26] VITALS: BP 146/84; PULSE 80; RESP 18; TEMP 37.2; O2SAT 98
[2022-07-22 17:30] VITALS: BP 134/95; PULSE 76; RESP 18; O2SAT 97
== END 2022-07-22 17:33 | disposition home or self-care (01) ==
PROVIDERS: Emergency Provider Emergency Medicine; PCP Nurse Practitioner Family
DX: J44.1 Chronic obstructive pulmonary disease with (acute) exacerbation (principal); J18.9 Pneumonia, unspecified organism; F17.210 Nicotine dependence, cigarettes, uncomplicated
CPT/HCPCS: 71045; 80048; 83605; 84484; 85025; 87040; 87636; 93005; 99284; 99285; C9803; U0003; U0005

== ENCOUNTER 2022-08-02 11:30 | Emergency (ER) | payer MEDICAID, SELFPAY ==
[2022-08-02] VITALS (8 sets, daily range): BP systolic 108–139; BP diastolic 69–74; PULSE 52–69; RESP 16–19; TEMP 36.9; O2SAT 95–100; BMI 26.4
--- NOTE | 2022-08-02 12:07 | XR_ITS ---
FINAL REPORT CLINICAL HISTORY: Right chest wall pain COMPARISON: Chest 07/22/2022 FINDINGS: A single view of the chest with 3 views of the ribs were obtained. There is no acute cardiopulmonary process. No pneumothorax is identified. There is a chronic lateral right fifth rib fracture. Chronic left sixth and eighth posterior rib fractures are noted. No acute displaced rib fracture identified. IMPRESSION: No acute process. Reviewed, Interpreted and Dictated by Osman Maldonado III, MD Transcribed by Shazia Christopher Authenticated and [facility]
--- NOTE | 2022-08-02 12:16 | HMH.EDBACK ---
Discharge Plan Disposition Patient Disposition: Home, Self-Care Prescriptions Prescriptions: New naproxen 375 mg tablet 375 mg PO BID Qty: 30 0RF No Action methocarbamol 500 MG tablet 1,000 mg PO TID 10 Days Qty: 60 0RF ibuprofen 800 MG tablet 800 mg PO TIDP PRN (Reason: Moderate Pain) Qty: 20 0RF methocarbamol 750 MG tablet 750 mg PO Q6 PRN (Reason: Muscle Spasm) Qty: 30 0RF hydrochlorothiazide 12.5 MG tablet 25 mg PO DAILY aspirin 81 MG tablet,chewable 81 mg PO DAILY albuterol sulfate 2.5 MG/NEB solution for nebulization 2.5 mg inhalation DAILY trazodone 150 MG tablet 150 mg PO PM methocarbamol 500 MG tablet 500 mg PO BID PRN (Reason: Muscle Spasm) Qty: 10 0RF atorvastatin 10 MG tablet 10 mg PO HS amlodipine 5 MG tablet 5 mg PO DAILY hydrochlorothiazide 12.5 MG capsule 25 mg PO ONCE omeprazole 20 MG tablet,delayed release (DR/EC) 20 mg PO DAILY chlordiazepoxide HCl 25 MG capsule 50 mg PO DIRECTED Qty: 15 0RF Rx Instructions: 50 mg Q6h day 1, 25 mg Q6h day 2, 25 mg Q6h day 3, 25 mg HS day 4 methocarbamol [Methocarbamol] 750 mg tablet 750 mg PO Q6 PRN (Reason: Muscle Spasm) Qty: 30 0RF prednisone 20 mg tablet 40 mg PO DAILY 5 Days Qty: 10 0RF doxycycline hyclate 100 mg tablet 100 mg PO BID 7 Days Qty: 14 0RF Referrals Follow up/Referrals: Xiomy Ash [Primary Care Provider] - See instructions Activity Restrictions/Add. Instructions Additional Instructions/Restrictions: Hold ibuprofen. Clinical Impressions Clinical Impression: Acute chest wall pain Instructions Patient Instructions: DI for Low Back Pain Discharge ED Provider: Cristo Kay Back Pain HPI General Chief Complaint: Back Pain/Injury Stated Complaint: Back pain Time Seen by Provider: 08/02/22 11:55 Mode of Arrival: Ambulatory Limitations: No Limitations Description of Symptoms (Recalled from ER Triage Doc. by RN): PT REPORTS STANDING AT WORK, COUGHED AND NOW HAS BACK AND RIB PAIN. History of Present Illness MD Complaint: back pain Duration: intermittent Similar Symptoms Previously: No Location: thoracic spine (Right ribs) Severity: moderate Quality: sharp Related Data Home Medications Medication Instructions Recorded Confirmed albuterol sulfate 2.5 mg/3 mL 2.5 mg inhalation DAILY Breathing 12/07/18 04/06/22 (0.083 %) solution for nebulization problems aspirin 81 mg chewable tablet 81 mg PO DAILY Blood thinner 12/07/18 04/06/22 hydrochlorothiazide 12.5 mg tablet 25 mg PO DAILY Hypertension 12/07/18 04/06/22 trazodone 150 mg tablet 150 mg PO PM Sleep 12/07/18 04/06/22 amlodipine 5 mg tablet 5 mg PO DAILY High blood pressure 01/19/20 04/06/22 atorvastatin 10 mg tablet 10 mg PO HS Cholesterol 01/19/20 04/06/22 hydrochlorothiazide 12.5 mg capsule 25 mg PO ONCE High blood pressure 01/19/20 04/06/22 omeprazole 20 mg tablet,delayed 20 mg PO DAILY GERD 01/19/20 04/06/22 release Previous Rx's Medication Instructions Recorded methocarbamol 500 mg tablet 500 mg PO BID PRN Muscle Spasm #10 12/07/18 tabs chlordiazepoxide HCl 25 mg capsule 50 mg PO DIRECTED #15 caps 01/19/20 ibuprofen 800 mg tablet 800 mg PO TIDP PRN Moderate Pain 04/15/21 #20 tabs methocarbamol 500 mg tablet 1,000 mg PO TID 10 days #60 tabs 04/15/21 methocarbamol 750 mg tablet 750 mg PO Q6 PRN Muscle Spasm #30 09/20/21 tabs methocarbamol 750 mg tablet 750 mg PO Q6 PRN Muscle Spasm #30 01/29/22 tabs doxycycline hyclate 100 mg tablet 100 mg PO BID 7 days #14 tabs 07/22/22 prednisone 20 mg tablet 40 mg PO DAILY 5 days #10 tabs 07/22/22 naproxen 375 mg tablet 375 mg PO BID #30 tabs 08/02/22 Allergies Allergy/AdvReac Type Severity Reaction Status Date / Time lisinopril Allergy Mild Verified 04/06/22 12:00 [facility] Disclaimer: The information contained in this section may have been updated after the patient was seen, as this infor
--- NOTE | 2022-08-02 12:39 | PC.NURSE ---
ROUNDED ON PT, NO NEEDS AT THIS TIME
--- NOTE | 2022-08-02 13:17 | PC.NURSE ---
ED MD AT BEDSIDE TO REEVALUATE PT
== END 2022-08-02 14:40 | disposition home or self-care (01) ==
PROVIDERS: Emergency Provider Emergency Medicine; PCP Nurse Practitioner Family
DX: R07.89 Other chest pain (principal); M54.9 Dorsalgia, unspecified; F17.210 Nicotine dependence, cigarettes, uncomplicated
CPT/HCPCS: 71101; 96372; 99283; 99284

== ENCOUNTER → 2023-02-13 06:47 | Outpatient (CLI) | payer MEDICAID, SELFPAY ==
--- NOTE | 2023-02-13 06:52 | CT_ITS ---
FINAL REPORT TECHNIQUE: Axial images were obtained through the chest without contrast. CLINICAL HISTORY: HEMOPTYSIS, LUNG NODULES COMPARISON: CT low-dose 05/11/2022 FINDINGS: There are few small scattered mediastinal lymph nodes which are stable. The heart size is normal. There are moderate to extensive coronary artery calcifications, greater than expected for patient's age. There is no pericardial or pleural effusion. There are diffuse and mild groundglass opacities throughout the right lung involving the upper, middle, and lower lobes. The previously noted more locally dense airspace opacities have resolved. Limited images of the upper abdomen demonstrate simple and complex cysts of the right kidney. IMPRESSION: Resolution of previously locally dense airspace lesions with interval development of more diffuse groundglass opacities in the right lung. Findings favor underlying infectious or inflammatory process. Bronchoscopy recommended. Coronary artery calcifications greater than expected for patient's age. Simple and complex cysts right kidney, similar to the prior study. Reviewed, Interpreted and Dictated by Emerson Hodge MD Transcribed by Shazia Christopher Authenticated and [facility]
== END ==
PROVIDERS: PCP Nurse Practitioner Family; Visit Provider Nurse Practitioner Family
DX: R04.2 Hemoptysis (principal)
CPT/HCPCS: 71250

== ENCOUNTER 2023-12-19 09:46 | Day surgery (SDC) | payer MEDICAID, SELFPAY ==
[2023-12-19 10:05] VITALS: BP 142/75; PULSE 58; RESP 16; TEMP 36.1; O2SAT 94
[2023-12-19] MEDS: LACTATED RINGERS 1000ML 1,000 ML 25 ML IV (10:10)
[2023-12-19 10:24] VITALS: BMI 29.2
--- NOTE | 2023-12-19 11:12 | EXP.ANES.CKL ---
[facility] Disclaimer: The information contained in this section may have been updated after the patient was seen, as this information can be updated by other users. Medical History (Updated 12/19/23 @ 10:01 by Teja Shah) Hyperlipidemia Hypertension Sleep apnea COPD (chronic obstructive pulmonary disease) Surgical History (Updated 12/19/23 @ 10:02 by Teja Shah) History of incision and drainage History of kidney surgery Social History (Updated 12/19/23 @ 10:03 by Teja Shah) Smoking Status: Current every day smoker tobacco type: cigarettes packs per day: 1 second hand exposure: Yes alcohol intake: current alcohol intake frequency: 3 or more drinks per day substance use type: unknown current occupational status: other Travel in the last 8 weeks: None household members: other housing: other current occupational exposures/hazards: No caffeine: Yes [facility] Anesthesia Checklist Patient Identification Patient Identification: Arm Band Structural Data Admitted From: Home Planned Operative Procedure/s: Colonoscopy Consent for Planned Operative Procedure(s) Verified: Yes Verified Documents: Surgical Consent and History and Physical NPO Status Verified Time NPO: 00:00 Additional verifications Anesthesia Reactions: No Airway Assessment Mallampati Score:: Class II C-Spine Mobility Assessed: Yes TMJ Mobility Assessed: Yes Dentition: Good Dentition Neurological Assessment Level of Consciousness: Awake, Alert and Appropriate Anesthesia Plan Anesthesia Risk discussed: Yes Anesthesia Plan: Verified ASA Class: III Anesthesia Type: MAC
[2023-12-19 12:04] VITALS: O2SAT 94
--- NOTE | 2023-12-19 12:13 | P.PCN_ITS ---
[facility] Procedure Note Date: 12/19/23 Time: 12:34 Procedure Note:: Colonoscopy Procedure Report: Colonoscopy with cold snare polypectomy and cold biopsies Endoscopist: Bony Andujar II, MD Referring physician: SAMI Roman Date of Procedure: December 19, 2023 Equipment: Olympus 190 variable stiffness pediatric colonoscope Sedation: MAC sedation Indication: Mr. Christy is a 53-year-old gentleman who is here for initial screening colonoscopy. He reports no abdominal pain, weight loss, change in his bowel habits or rectal bleeding. He reports no family history of colon cancer. Years ago, he did have a perianal abscess or cyst that was drained and had perianal/perirectal fistulas. Procedure: Prior to the procedure, a history and physical exam was performed, and patient's medications and allergies were reviewed. The risks, benefits and alternatives of the sedation and procedure were discussed with the patient. All questions were answered and informed consent was obtained. The patient was brought to the procedure room. Patient identification and proposed procedure were verified by the physician and the nurse. The patient was placed in a left lateral decubitus position and the scope was passed under direct vision. Throughout the procedure, the patient's blood pressure, pulse, and oxygen saturations were monitored continuously. The colonoscopy was accomplished without difficulty. The patient tolerated the procedure well. Findings: On digital rectal examination there was normal rectal tone. There were no external hemorrhoids. The colonoscope was introduced through the anal canal to the rectum and advanced to the cecum. The ileocecal valve and appendiceal orifice were identified. The scope was advanced a short distance into the ileum. There was mild patchy and minimal erythema within the distal ileum. There was 1 larger lymphoid nodule that was 8 mm and biopsied (suspect benign lymphoid nodule). The scope was then withdrawn into the colon. The cecum, ascending and transverse colon and mucosa were grossly normal. There were scattered diverticu li throughout the descending and sigmoid colon (LEFT colon). There was a single 5 mm polyp in the sigmoid colon removed via cold snare polypectomy. The rectum itself was normal. Upon retroflexion within the rectum there were grade 1-2 internal hemorrhoids. The preparation was good throughout with [place] Preparation Score of 8 out of 9. The cecal time was 12 minutes. Impression: 1. Diminutive sigmoid polyp 2. Benign ileal nodule (probable benign ileal lymphoid hyperplasia)?biopsied 3. Left-sided diverticulosis 4. Grade 1-2 internal hemorrhoids Plan: I will follow-up the polyp histology and recommend repeat surveillance colonoscopy again in 7 years if the polyp is adenomatous. I would encourage psyllium bulking fiber supplementation on a maintenance basis.
--- NOTE | 2023-12-19 12:13 | EXP.HP ---
History of Present Illness *Admission Date: 12/19/23 *Reason for visit:: Screening *History of present illness: Mr. Christy is a 53-year-old gentleman who is here for initial screening colonoscopy. The examination is deemed medically necessary for colonoscopy. The patient has been seen, interviewed and examined prior to the procedure by both myself and the anesthesia provider. [facility] Disclaimer: The information contained in this section may have been updated after the patient was seen, as this information can be updated by other users. Medical History (Updated 12/19/23 @ 12:14 by Bony Andujar II, MD) Hyperlipidemia Hypertension Sleep apnea COPD (chronic obstructive pulmonary disease) Surgical History (Updated 12/19/23 @ 10:02 by Teja Shah) History of incision and drainage History of kidney surgery Social History (Updated 12/19/23 @ 10:03 by Teja Shah) Smoking Status: Current every day smoker tobacco type: cigarettes packs per day: 1 second hand exposure: Yes alcohol intake: current alcohol intake frequency: 3 or more drinks per day substance use type: unknown current occupational status: other Travel in the last 8 weeks: None household members: other housing: other current occupational exposures/hazards: No caffeine: Yes Other Medical History Have you received the Flu Vaccine for this season: No Have you received the Pneumonia Vaccine: No Review of Systems Review of Systems Review of systems (narrative): Negative *Cardiovascular Comments: Negative *Gastrointestinal Comments: Negative *Genitourinary Comments: Negative *Musculoskeletal Comments: Negative *Neurologic Comments: Negative Meds Home Medications and Allergies Home Medications ?Medication ?Instructions ?Recorded ?Confirmed ?Type albuterol sulfate 2.5 mg/3 mL 2.5 mg inhalation DAILY Breathing 12/07/18 12/19/23 History (0.083 %) solution for nebulization problems aspirin 81 mg chewable tablet 81 mg PO DAILY Blood thinner 12/07/18 12/19/23 History trazodone 150 mg tablet 50 mg PO PM Sleep 12/07/18 12/19/23 History atorvastatin 10 mg tablet 10 mg PO HS Cholesterol 01/19/20 12/19/23 History hydrochlorothiazide 12.5 mg capsule 25 mg PO ONCE High blood pressure 01/19/20 12/19/23 History esomeprazole magnesium 40 mg 40 mg PO DAILY 12/13/23 12/19/23 History capsule,delayed release carvedilol 6.25 mg tablet 6.25 mg PO BID 12/19/23 12/19/23 History magnesium oxide 400 mg (241.3 mg 400 mg PO DAILY 12/19/23 12/19/23 History magnesium) tablet meloxicam 15 mg tablet 15 mg PO DAILY 12/19/23 12/19/23 History multivitamin 1 tab PO DAILY 12/19/23 12/19/23 History New Prescriptions to Start Prescriptions: Allergies Allergy/AdvReac Type Severity Reaction Status Date / Time lisinopril Allergy Mild swelling Verified 12/13/23 13:47 side of face Exam Data for Last 24 hours Vital signs and Labs for Last 24 Hours: Temp Pulse Resp BP Pulse Ox O2 Del Method 97 F L 58 L 16 142/75 H 94 L Room Air 12/19/23 10:05 12/19/23 10:05 12/19/23 10:05 12/19/23 10:05 12/19/23 10:05 12/19/23 10:05 I & O for Last 24 hours: Intake & Output 12/16/23 12/17/23 12/18/23 12/19/23 23:59 23:59 23:59 23:59 Weight 210 lb *Routine HEENT Exam Head: Present normocephalic Eye: Present EOMI and PERRL ENT: Present mucous membranes moist *Routine Neck Exam Neck: Present supple *Routine Respiratory Exam Respiratory: Present CTA bilaterally *Routine Cardiovascular Exam Cardiovascular: Present RRR *Routine Abdominal Exam Abdominal: Present soft and normoactive bowel sounds; Absent tenderness *Routine Rectal Exam Rectal:: deferred *Routine Genitalia Exam Genitalia:: deferred *Routine Extremities Exam Extremities: Absent cyanosis, clubbing or edema *Routine Skin Exam Skin: Present warm; Absent rash *Routine Neurological Exam Neurological: Present alert and oriented X3 Assessment and Plan *Assessment and plan (1) Screening for colon cancer: Status: Acute Category: Medical Code(s): Z12.11 - Encounter for screening for malignant neoplasm of colon Plan A/P: 1. Screening for colon cancer is the preprocedural diagnosis. The patient will be anesthetized/sedated using MAC sedation. The patient has been seen and examined. Cardiac and lung assessment prior to the examination is stable. Proceed with planned screening colonoscopy
[2023-12-19 12:38] VITALS: BP 103/57; PULSE 64; RESP 18; O2SAT 97
[2023-12-19 12:48] VITALS: BP 106/63; PULSE 49; RESP 18; O2SAT 96
[2023-12-19 12:58] VITALS: BP 127/61; PULSE 57; RESP 18; O2SAT 96
[2023-12-19 13:29] VITALS: BP 125/82; PULSE 63; RESP 18; O2SAT 96
== END 2023-12-19 13:29 | disposition home or self-care (01) ==
PROVIDERS: PCP Nurse Practitioner Family; Visit Provider Internal Medicine Gastroenterology
PROC: (CPT 45380; principal; 2023-12-19 11:30)
DX: K63.5 Polyp of colon (principal); K57.30 Diverticulosis of large intestine without perforation or abscess without bleeding; K64.8 Other hemorrhoids; Z12.11 Encounter for screening for malignant neoplasm of colon
CPT/HCPCS: 45380; 45385; J7120